=== PATIENT | female | born 1980 | race Caucasian/White ===

== ENCOUNTER 2019-02-24 21:57 | Emergency (ER) | payer OTHER ==
[2019-02-25 01:26] LABS: Basophils % (Auto) 0.3 % (0.0-1.8); Eosinophils # (Auto) 0.1 K/mm3 (0.0-0.4); Eosinophils % (Auto) 0.8 % (0.0-4.3); Hemoglobin 12.2 gm/dl (10.1-14.3); Lymphocytes # (Auto) 3.4 K/mm3 (1.2-5.4); Lymphocytes % (Auto) 31.2 % (13.4-35.0); Mean Corpuscular HGB Conc 33 % (30-34); Mean Corpuscular Volume 80 fl (79-97); Monocytes # (Auto) 0.7 K/mm3 (0.0-0.8); Monocytes % (Auto) 6.7 % (0.0-7.3); Platelet Count 253 K/mm3 (140-440); Red Blood Count 4.64 M/mm3 (3.65-5.03); Red Cell Distribution Width 16.1 % (13.2-15.2)
[2019-02-25 01:53] LABS: Alanine Aminotransferase 23 units/L (7-56); Albumin 3.9 g/dL (3.9-5); BUN/Creatinine Ratio 20; Blood Urea Nitrogen 12 mg/dL (7-17); Calcium 9.2 mg/dL (8.4-10.2); Hemolysis Index 8
--- NOTE | 2019-02-25 03:14 | Ultrasound Report ---
ULTRASOUND OBSTETRIC Indication: Vaginal bleeding, Findings: Transabdominal and transvaginal imaging was performed. There is a single, living intrauterine . Sawyer-rump length = 0.58 cm = 6 weeks, 3 day(s). No cul-de-sac is present. heart rate is 118 beats per minute. The ovaries are normal. There is no free fluid. Impression: Single, living intrauterine with estimated sonographic age of 6 weeks, 3 day(s). Signer Name: Jimi Panda MD Signed: 02/25/2019 3:09 AM Workstation Name: [id number]
--- NOTE | 2019-02-25 04:20 | Emergency Department Report ---
ED Female HPI - General Chief complaint: Vaginal Bleeding Stated complaint: 6WEEKS PREG./BROWN DISCHARGE Source: patient Mode of arrival: Ambulatory Limitations: No Limitations - History of Present Illness Initial comments: Patient is a A0 39 yo Female who is approximately 6 weeks gestation and who presents to the ED with c/o acute onset persistent intermittent vaginal bleeding which she described as spotting for the last 6 hours. Patient states that each time she has tried and when she wipes traces of blood up here on the toilet paper. Patient denies abdominal pain, dysuria, urinary frequency and urgency, dizziness, fever, chills, vaginal discharge, diarrhea, change in vision, chest pain or shortness of breath and nausea or vomiting. MD Complaint: vaginal bleeding -: Sudden, hour(s) (6) Location: other (vaginal) Radiation: non-radiating Severity: moderate Severity scale (0 -10): 3 Quality: other (No pain) Consistency: intermittent Improves with: none Worsens with: urination Are you Now?: Yes (yes ) Associated Symptoms: denies other symptoms - Related Data Sexually active: Yes : 5 Para: 4 A: 0 Home Medications Medication Instructions Recorded Confirmed Last Taken Vit 90/Iron Fum/Folic 1 each PO QDAY 12/16/13 07/24/14 07/23/14 09:00 [ Formula] 1 tab glyBURIDE [Glyburide] 2.5 mg PO DAILY 07/22/14 07/24/14 07/23/14 17:00 2.5mg Previous Rx's Medication Instructions Recorded Last Taken Type Ferrous Sulfate [Feosol 325 MG tab] 325 mg PO BID #60 tablet 07/25/14 Unknown Rx Ibuprofen [Motrin 600 MG tab] 600 mg PO Q6HR PRN #30 tablet 07/25/14 Unknown Rx Allergies Allergy/AdvReac Type Severity Reaction Status Date / Time No Known Allergies Allergy Verified 07/23/14 17:56 ED Review of Systems ROS: Stated complaint: 6WEEKS PREG./BROWN DISCHARGE Other details as noted in HPI Constitutional: denies: chills, fever Eyes: denies: eye pain, eye discharge, vision change ENT: denies: ear pain, throat pain Respiratory: denies: cough, shortness of breath, wheezing Cardiovascular: denies: chest pain, palpitations Endocrine: no symptoms reported Gastrointestinal: denies: abdominal pain, nausea, diarrhea Genitourinary: hematuria, other (Vaginal bleeding). denies: urgency, dysuria, discharge Musculoskeletal: denies: back pain, joint swelling, arthralgia Skin: denies: rash, lesions Neurological: denies: headache, weakness, paresthesias Psychiatric: denies: anxiety, depression Hematological/Lymphatic: denies: easy bleeding, easy bruising ED Past Medical Hx - Past Medical History Hx Hypertension: No Hx Congestive Heart Failure: No Hx Diabetes: Yes (Pre) Hx Deep Vein Thrombosis: No Hx Renal Disease: No Hx Sickle Cell Disease: No Hx Seizures: No Hx Asthma: No Hx COPD: No Hx HIV: No - Surgical History Past Surgical History?: Yes Additional Surgical History: csection - Social History Smoking Status: Never Smoker Substance Use Type: None - Medications Home Medications: Home Medications Medication Instructions Recorded Confirmed Last Taken Type Vit 90/Iron Fum/Folic 1 each PO QDAY 12/16/13 07/24/14 07/23/14 09:00 History [ Formula] 1 tab glyBURIDE [Glyburide] 2.5 mg PO DAILY 07/22/14 07/24/14 07/23/14 17:00 History 2.5mg Ferrous Sulfate [Feosol 325 MG tab] 325 mg PO BID #60 tablet 07/25/14 Unknown Rx Ibuprofen [Motrin 600 MG tab] 600 mg PO Q6HR PRN #30 tablet 07/25/14 Unknown Rx ED Physical Exam - General Limitations: No Limitations General appearance: alert, in no apparent distress - Head Head exam: Present: atraumatic, normocephalic, normal inspection - Eye Eye exam: Present: normal appearance, PERRL, EOMI. Absent: scleral icterus, conjunctival injection, nystagmus, periorbital swelling, periorbital tenderness Pupils: Present: normal accommodation - ENT ENT exam: Present: normal exam, normal orophraynx, mucous membranes moist, TM's normal bilaterally, normal external ear exam - Neck Neck exam: Present: normal inspection, full ROM - Respiratory Respiratory exam: Present: normal lung sounds bilaterally. Absent: respiratory distress, wheezes, rales, rhonchi, chest wall tenderness, accessory muscle use, decreased breath sounds, prolonged expiratory - Cardiovascular Cardiovascular Exam: Present: regular rate, normal rhythm, normal heart sounds. Absent: systolic murmur, diastolic murmur, rubs, gallop - GI/Abdominal GI/Abdominal exam: Present: soft, normal bowel sounds. Absent: distended, tenderness, guarding, rebound, hyperactive bowel sounds, hypoactive bowel sounds - Rectal Rectal exam: Present: deferred - Bi-manual exam: Present: other (Pelvic exam deferred, patient declined) - Extremities Exam Extremities exam: Present: normal inspection, full ROM, normal capillary refill - Back Exam Back exam: Present: normal inspection, full ROM. Absent: tenderness, CVA tenderness (R), CVA tenderness (L), muscle spasm, vertebral tenderness - Neurological Exam Neurological exam: Present: alert, oriented X3, CN II-XII intact, normal gait, reflexes normal - Psychiatric Psychiatric exam: Present: normal affect, normal mood - Skin Skin exam: Present: warm, dry, intact, normal color. Absent: rash ED Course Vital Signs 02/24/19 23:24 Temperature 98 F Pulse Rate 77 Respiratory 16 Rate Blood Pressure 114/75 O2 Sat by Pulse 100 Oximetry - Reevaluation(s) Reevaluation #1: 02/25/19 04:44 Patient is alert and oriented 3 and is not in distress with normal vital signs. Laboratory results were reviewed and are all unremarkable and non-actionable. The transvaginal ultrasound shows a single IUP with estimated sonographic g estational age of 6 weeks and 3 days, and the heart rate is 118 bpm. The ovaries are normal and there is no free fluid. On reevaluation, the patient is sleeping comfortably in the bed in no acute distress. The patient's ABO/Rhesus type is positive. Patient was discharged home and advised to maintain a complete pelvic rest and to follow-up with her [facility] [employer] physician in 2 days for reevaluation or return to the ED immediately if symptoms get worse. ED Medical Decision Making - Lab Data Result diagrams: 02/25/19 01:12 02/25/19 01:12 - Radiology Data Radiology results: report reviewed, image reviewed Transvaginal US: Shows a single IUP of approximately 6 weeks and 3 days with a FHR of 118 bpm, and normal ovaries and no free fluid - Medical Decision Making Patient is alert and oriented 3 and is not in distress with normal vital signs. Laboratory results were reviewed and are all unremarkable and non-actionable. The transvaginal ultrasound shows a single IUP with estimated sonographic gestational age of 6 weeks and 3 days, and the heart rate is 118 bpm. The ovaries are normal and there is no free fluid. On reevaluation, the patient is sleeping comfortably in the bed in no acute distress. The patient's ABO/Rhesus type is positive. Patient was discharged home and advised to maintain a complete pelvic rest and to follow-up with her [facility] [employer] physician in 2 days for reevaluation or return to the ED immediately if symptoms get worse. - Differential Diagnosis Threatened miscarriage; Acute UTI, Abdominal pain Critical care attestation.: If time is entered above; I have spent that time in minutes in the direct care of this critically ill patient, excluding procedure time. ED Disposition Clinical Impression: Threatened miscarriage in early , Vaginal bleeding affecting early Disposition: DC-01 TO HOME OR SELFCARE Is pt being admited?: No Does the pt Need Aspirin: No Condition: Stable Instructions: Threatened Miscarriage (ED) Additional Instructions: MAINTAIN A COMPLETE PELVIC REST, AND FOLLOW UP WITH THE [facility] PHYSICIAN IN 2-3 DAYS FOR REEVALUATION. Return to the ED immediately if symptoms get worse Referrals: ANGELIC RALPH MD [Staff Physician] - 3-5 Days Time of Disposition: 04:15 Print Language: PORTUGUESE
[2019-02-25 05:07] LABS: Bilirubin,Urine NEG (Negative); Blood,Urine NEG (Negative); Color,Urine Yellow (Yellow); Mucus,Urine FEW /HPF; Protein,Urine <15 mg/dL mg/dL (Negative); Urobilinogen,Urine < 2.0 mg/dL (<2.0); WBC,Urine < 1.0 /HPF (0.0-6.0)
[2019-02-25 06:03] VITALS: BP 105/68
== END 2019-02-25 06:02 | disposition home or self-care (01) ==
LOC: ED 21:57
DX: O20.0 Threatened abortion (principal); O24.311 Unspecified pre-existing diabetes mellitus in pregnancy, first trimester; E11.9 Type 2 diabetes mellitus without complications; Z79.899 Other long term (current) drug therapy; Z3A.01 Less than 8 weeks gestation of pregnancy
CPT/HCPCS: 36415; 76801; 76817; 80053; 81001; 83690; 84702; 85025; 86900; 86901